=== PATIENT | male | born 1980 | race Hispanic/Latino ===

== ENCOUNTER 2019-09-01 06:23 | Emergency (ER) | payer SELFPAY | END 2019-09-01 06:44 | LOC: EDH 06:23 | DX: Z02.83 Encounter for blood-alcohol and blood-drug test (principal); Z72.0 Tobacco use | CPT/HCPCS: 36415; 99281 ==

== ENCOUNTER 2019-09-02 21:01 | Emergency (ER) | payer SELFPAY ==
[2019-09-02] MEDS ORDERED: FLUORESCEIN SODIUM 1 STRIP STRIP ONE (21:28)
[2019-09-02] MEDS ORDERED: TETRACAINE HCL 0.5% 4 ML OPHTH SOLN ONE (21:28)
[2019-09-02] MEDS ORDERED: ERYTHROMYCIN BASE 0.5% OPHTH OINT 1 GM TUBE ONE (22:00)
== END 2019-09-02 22:11 | disposition home or self-care (01) ==
LOC: EDH 21:01
DX: S05.02XA Injury of conjunctiva and corneal abrasion without foreign body, left eye, initial encounter (principal); Z72.0 Tobacco use; X58.XXXA Exposure to other specified factors, initial encounter; Y93.89 Activity, other specified; Y92.89 Other specified places as the place of occurrence of the external cause; Y99.8 Other external cause status

== ENCOUNTER 2024-07-11 18:51 | Emergency (ER) | payer SELFPAY ==
[~2024-07-11] VITALS: Ht 167.6 cm; Wt 84.4 kg
[2024-07-11 20:00] LABS: BASOPHILS # (AUTO) 0.06 K/uL (0.00-0.20); BASOPHILS % (AUTO) 0.7 % (0.0-5.0); EOSINOPHILS # (AUTO) 0.27 K/uL (0.00-0.70); EOSINOPHILS % (AUTO) 3.3 % (0.0-8.0); HEMATOCRIT 44.6 % (42-54); IMMATURE GRANULOCYTE ABSOLUTE 0.05 K/uL (0-1); LYMPHOCYTES # (AUTO) 2.2 K/uL (1.0-4.8); MEAN CORPUSCULAR HEMOGLOBIN 29.9 pg (27.0-33.0); MEAN CORPUSCULAR VOLUME 90.8 fL (79-99); MONOCYTES # (AUTO) 0.6 K/uL (0.1-1.0); MONOCYTES % (AUTO) 7.6 % (3.0-13.0); NEUTROPHILS # (AUTO) 4.9 K/uL (1.8-7.7); NEUTROPHILS % (AUTO) 60.8 % (40.0-77.0); PLATELET COUNT (AUTO) 234 K/uL (130-400); RED BLOOD CELL COUNT(AUTO) 4.91 MIL/uL (4.50-6.20); RED CELL DISTRIBUTION WIDTH 12.7 % (11.0-15.5); WHITE BLOOD COUNT (AUTO) 8.1 K/uL (4.8-10.8)
[2024-07-11] MEDS: HYDROcodone/APAP 5/325 1 TAB TABLET PO STA (20:07)
[2024-07-11 20:16] LABS: CREATININE 0.9 mg/dL (0.5-1.3); POTASSIUM 4.3 mmol/L (3.5-5.1)
--- NOTE | 2024-07-11 20:18 | HMCIMG ---
PORTABLE CHEST RADIOGRAPH INDICATION: right rib pain COMPARISON: 07/13/2008 FINDINGS: Heart size is normal. The pulmonary vascularity and jaciel appear normal. No abnormal pulmonary parenchymal opacity or consolidation identified. No significant pleural effusion noted. No pneumothorax detected. IMPRESSION: No radiographic evidence for any acute cardiopulmonary process.
[2024-07-11] MEDS ORDERED: HYDR30CR79 TP (20:45)
[2024-07-11] MEDS ORDERED: DOCU-116 PO (20:45)
--- NOTE | 2024-07-11 20:58 | ERN ---
ED Note History of Present Illness Stated Complaint: RECTAL BLEEDING Chief Complaint: Rectal Bleed Time Seen by MD: 19:04 Time Seen by Midlevel: 19:10 Dictation: 43-year-old male with no past medical history coming in with complaints of rectal bleeding and right rib pain for one year. Patient states the rectal bleeding started five days ago, states he strains to have bowel movement and notices blood when he wipes. This is a rib pain was one year ago denies any trauma. Allergies: Coded Allergies: No Known Drug Allergies (Unverified Allergy, Unknown, 09/01/19) Past Medical History Past Medical History: No Pertinent History Surgical History: Appendectomy, Cholecystectomy Review of System Dictation Constitutional: Negative for fever,chills, and weight loss Eyes: Negative for injury, pain,redness, and discharge ENT: Negative for injury,pain or swelling Cardiovascular: Negative for chest pain, palpitations, and edema, complaining of right rib pain Respiratory: Negative for shortness of breath, cough, and wheezing, Abdomen/GI: Negative for abdominal pain, nausea, vomiting, diarrhea, and constipation Back: Negative for injury and pain : Negative for injury, bleeding and discharge MS/Extremity: Negative for injury and deformity Skin: Negative for rash, and discoloration Neuro: Negative for headache, weakness, numbness, tingling, and seizure Psych: Negative for suicide ideation, homicidal ideation, and hallucinations Review of Systems: was completed Initial Vital Sign VS Vital Signs Date Time Temp Pulse Resp B/P (MAP) Pulse Ox O2 Delivery O2 Flow Rate FiO2 07/11/24 18:52 97.0 76 20 136/83 98 Room Air 0 07/11/24 19:54 21 Physical Exam Dictation General: awake, alert, NAD Head/Face: Normocephalic, atraumatic Eyes: PERRL, EOMI, vision at baseline ENT: oral cavity clear, TMs clear, no signs of infection Neck: Trachea midline, supple, no nuchal rigidity Cardiovascular: RRR, normal S1/S2, No MRGs, no JVD Respiratory: CTAB, no respiratory distress, No rales or wheezes Abdomen: Soft, non-tender, non-distended, normal bowel sounds, no guarding or rebound. Skin: Warm, dry, normal turgor, no rash MS/Extremity: Pulses equal, no cyanosis, neurovascular intact, FROM Neuro: COAx4, GCS 15, strength 5/5, CN 2-12 intact, normal cerebellar exam, normal gait, Psych: Normal behavior, mood, and affect normal Rectal exam no gross or tom blood. External Hemorrhoid noted, nonthrombosed. Results (Laboratory/Radiology) Laboratory/Radiology Laboratory Tests Test 07/11/24 19:51 07/11/24 20:31 White Blood Count 8.1 K/uL (4.8-10.8) Red Blood Count 4.91 MIL/uL (4.50-6.20) Hemoglobin 14.7 g/dL (14.0-18.0) Hematocrit 44.6 % (42-54) Mean Corpuscular Volume 90.8 fL (79-99) Mean Corpuscular Hemoglobin 29.9 pg (27.0-33.0) Mean Corpuscular Hemoglobin Concent 33.0 g/dL (32.0-36.0) Red Cell Distribution Width 12.7 % (11.0-15.5) Platelet Count 234 K/uL (130-400) Mean Platelet Volume 11.2 fL (7.5-10.5) H Immature Granulocyte % (Auto) 0.6 % (0-1) Neutrophils (%) (Auto) 60.8 % (40.0-77.0) Lymphocytes (%) (Auto) 27.0 % (21.0-51.0) Monocytes (%) (Auto) 7.6 % (3.0-13.0) Eosinophils (%) (Auto) 3.3 % (0.0-8.0) Basophils (%) (Auto) 0.7 % (0.0-5.0) Neutrophils # (Auto) 4.9 K/uL (1.8-7.7) Lymphocytes # (Auto) 2.2 K/uL (1.0-4.8) Monocytes # (Auto) 0.6 K/uL (0.1-1.0) Eosinophils # (Auto) 0.27 K/uL (0.00-0.70) Basophils # (Auto) 0.06 K/uL (0.00-0.20) Absolute Immature Granulocyte (auto 0.05 K/uL (0-1) Nucleated Red Blood Cells 0.0 % (0.0-0.19) Sodium Level 142 mmol/L (136-145) Potassium Level 4.3 mmol/L (3.5-5.1) Chloride Level 106 mmol/L (101-111) Carbon Dioxide Level 30 mmol/L (21-32) Blood Urea Nitrogen 12 mg/dL (7-18) Creatinine 0.9 mg/dL (0.5-1.3) Glomerular Filtration Rate Calc 109 mL/min (>90) Random Glucose 103 mg/dL (70-105) Total Calcium 8.7 mg/dL (8.5-10.1) Stool Occult Blood POSITIVE (NEGATIVE) H Labs Reviewed?: Yes X-RAY Comment: [facility] [address] [place] [address] IMAGING REPORT Signed PATIENT: ARCHANA FLOWERS MR#: [id number] : 1980 SEX: M AGE: 43 LOCATION: [facility] ORDER 33 STATUS: [facility] REPORT#: [id number] SERVICE 31 REASON: right rib pain ORDERING PHYSICIAN: JASPER MOREL NP PROCEDURE: CXR1VW - CHEST 1VW PORTABLE CHEST RADIOGRAPH INDICATION: right rib pain COMPARISON: 07/13/2008 FINDINGS: Heart size is normal. The pulmonary vascularity and jaciel appear normal. No abnormal pulmonary parenchymal opacity or consolidation identified. No significant pleural effusion noted. No pneumothorax detected. IMPRESSION: No radiographic evidence for any acute cardiopulmonary process. DICTATED BY: BILL MARX MD DATE: 07/11/242014 ELECTRONICALLY SIGNED BY: BILL MARX MD DATE: 07/11/24 2018 ED Course ED Course Orders Procedure Category Date Status Time Cbc With Differential LAB 07/11/24 Complete 19:32 Basic Metabolic Panel LAB 07/11/24 Complete 19:32 Chest 1vw RAD 07/11/24 Resulted 19:32 Stool Culture NITA 07/11/24 Logged 19:32 Occult Blood Stool LAB 07/11/24 Complete Single Only 19:32 Hydrocodone/Apap PHA 07/11/24 Complete 5/325 ([place] 5/325mg) 19:32 Current Medications Medications (Trade) Dose Ordered Sig/Yash Route PRN Reason Start Time Stop Time Status Last Admin Dose Admin Acetaminophen/ Hydrocodone Bitart (NORco 5/325MG) 1 tab ONCE STAT PO 07/11/24 19:32 07/11/24 19:35 DC 07/11/24 20:07 Vital Signs Date Time Temp Pulse Resp B/P (MAP) Pulse Ox O2 Delivery O2 Flow Rate FiO2 07/11/24 19:54 97.5 68 16 125/64 99 Room Air* 0 21 07/11/24 18:52 97.0 76 20 136/83 98 Room Air 0 Medical Decision Making MDM MDM: 43-year-old male with no past medical history coming in with complaints of rectal bleeding and right rib pain for one year. Patient states the rectal bleeding started five days ago, states he strains to have bowel movement and notices blood when he wipes. This is a rib pain was one year ago denies any trauma. Physical exam shows clear bilateral lung sounds, abdomen is soft and nondistended, no tenderness to palpation. He has no suspicion for acute abdomen. Blood work unremarkable. Chest x-ray does not show any findings. Occult blood is positive. However explained to patient this could be relat to a hemorrhoid but feel in his to follow up with the GI. Educated on signs and symptoms of when to return back to the ER. Patient verbalized understanding, answered all questions. Differential diagnosis: GI bleed, hemorrhoid, costochondritis Rationale: Tests considered and ordered secondary to shared decision making include: Previous outside records reviewed: Old ER visits. Risk of complication and/or morbidity or mortality of patient management: None Medications-Per medication reconciliation Need for hospitalization: Patient does not meet criteria for hospitalization. Need for emergency major/minor surgery: No There are no social concerns with this patient. Prescription drug management Prescriptions will include symptomatic care Patient's prior external medical records from other ER visits were reviewed by me as indicated. Prior testing and results from previous visits were reviewed. Prior tests were taken into account with medical decision making and resource utilization, independent historian/historians were used to obtain complete medical history. I independently interpreted the test that were performed, results were reviewed by me and considered findings on radiology if ordered. Medical management and examination interpretation discussions were had by me with other qualified healthcare professionals as indicated for the patient's care. DX & DISP Disposition: Discharge Departure Impression: Primary Impression: External hemorrhoid Condition: Stable Scripts Hydrocortisone (Anusol-Hc) 2.5 % Cream..g. 1 APPL TP TID for 10 Days, #30 GM 0 Refills Prov: JASPER MOREL NP 07/11/24 Docusate Sodium (Colace) 100 Mg Capsule 100 MG PO TID for constipation for 10 Days, #30 CAP 0 Refills Prov: JASPER MOREL NP 07/11/24 Additional Instructions: Follow up with your primary doctor and or with the GI specialist. Return to the hospital if you have worsening symptoms. Referrals: FRED BEE MD Time of Disposition: 20:55 I have reviewed the case, and I agree with, Diagnosis and Plan JASPER MOREL NP Jul 11, 2024 20:58
[2024-07-11 21:16] VITALS: BP 121/68; PULSE 64; RESP 17; TEMP 97.5; O2SAT 99
== END 2024-07-11 21:25 | disposition home or self-care (01) ==
LOC: EDH 18:51
DX: K64.4 Residual hemorrhoidal skin tags (principal); Z90.49 Acquired absence of other specified parts of digestive tract
CPT/HCPCS: 36415; 71045; 80048; 82270; 85025; 99284